=== PATIENT | female | born 1975 | race Caucasian/White ===

== ENCOUNTER → 2016-11-17 | Outpatient (REF) | payer MEDICARE, MEDICAID ==
[2016-11-17 13:38] LABS: ALBUMIN 3.9 GM/DL (3.2-5.2); ALBUMIN/GLOBULIN RATIO 1.22 (1.00-1.93); ALKALINE PHOSPHATASE 58 U/L (45-117); ALT/SGPT 20 U/L (12-78); ANION GAP 7 MEQ/L (8-16); AST/SGOT 19 U/L (15-37); BILIRUBIN,TOTAL 0.4 MG/DL (0.2-1.0); BLOOD UREA NITROGEN 15 MG/DL (7-18); CALCIUM LEVEL 9.9 MG/DL (8.5-10.1); CARBON DIOXIDE LEVEL 29 MEQ/L (21-32); CHLORIDE LEVEL 104 MEQ/L (98-107); CREATININE FOR GFR 0.67 MG/DL (0.55-1.02); GLOMERULAR FILTRATION RATE > 60.0 (>58); GLUCOSE, FASTING 66 MG/DL (70-105); POTASSIUM SERUM 4.5 MEQ/L (3.5-5.1); SODIUM LEVEL 140 MEQ/L (136-145); TOTAL PROTEIN 7.1 GM/DL (6.4-8.2)
== END ==
LOC: M SFHCPLAZ 09:40
PROVIDERS: ATTEND Nurse Practitioner Family
DX: E78.2 Mixed hyperlipidemia (principal); E55.9 Vitamin D deficiency, unspecified

== ENCOUNTER → 2017-05-10 | Outpatient (REF) | payer MEDICARE, MEDICAID ==
[2017-05-10 10:58] LABS: ALBUMIN 3.8 GM/DL (3.2-5.2); ALBUMIN/GLOBULIN RATIO 1.23 (1.00-1.93); ALKALINE PHOSPHATASE 63 U/L (45-117); ALT/SGPT 19 U/L (12-78); ANION GAP 6 MEQ/L (8-16); AST/SGOT 11 U/L (15-37); BILIRUBIN,TOTAL 0.5 MG/DL (0.2-1.0); BLOOD UREA NITROGEN 13 MG/DL (7-18); CALCIUM LEVEL 9.2 MG/DL (8.5-10.1); CARBON DIOXIDE LEVEL 29 MEQ/L (21-32); CHLORIDE LEVEL 104 MEQ/L (98-107); CHOLESTEROL LEVEL 187 MG/DL (<200); GLOMERULAR FILTRATION RATE > 60.0 (>58); GLUCOSE, FASTING 81 MG/DL (70-105); SODIUM LEVEL 139 MEQ/L (136-145); TOTAL PROTEIN 6.9 GM/DL (6.4-8.2); TRIGLYCERIDES LEVEL 144 MG/DL (<150)
== END ==
LOC: M SFHCPLAZ 08:28
PROVIDERS: ATTEND Nurse Practitioner Family
DX: E78.2 Mixed hyperlipidemia (principal); E55.9 Vitamin D deficiency, unspecified

== ENCOUNTER → 2017-11-21 | Outpatient (REF) | payer MEDICARE, MEDICAID ==
[2017-11-22 08:09] LABS: ALPHA 1 ANTITRYPSIN 140 mg/dL (90-200)
== END ==
LOC: M SFHCPLAZ 09:37
DX: Z82.5 Family history of asthma and other chronic lower respiratory diseases (principal)
CPT/HCPCS: 82103

== ENCOUNTER → 2018-03-08 | Outpatient (CLI) | payer MEDICARE, MEDICAID | LOC: M WHC 11:46 | DX: Z01.419 Encounter for gynecological examination (general) (routine) without abnormal findings (principal); Z12.31 Encounter for screening mammogram for malignant neoplasm of breast (principal); Z79.3 Long term (current) use of hormonal contraceptives; R92.8 Other abnormal and inconclusive findings on diagnostic imaging of breast | CPT/HCPCS: 77067 ==

== ENCOUNTER → 2018-06-06 | Outpatient (REF) | payer MEDICARE, MEDICAID ==
[2018-06-06 12:35] LABS: ALBUMIN 3.9 GM/DL (3.2-5.2); ALBUMIN/GLOBULIN RATIO 1.34 (1.00-1.93); ALKALINE PHOSPHATASE 62 U/L (45-117); ALT/SGPT 20 U/L (12-78); ANION GAP 9 MEQ/L (8-16); AST/SGOT 15 U/L (7-37); BILIRUBIN,TOTAL 0.8 MG/DL (0.2-1.0); BLOOD UREA NITROGEN 15 MG/DL (7-18); CALCIUM LEVEL 9.4 MG/DL (8.5-10.1); CARBON DIOXIDE LEVEL 27 MEQ/L (21-32); CHLORIDE LEVEL 105 MEQ/L (98-107); CHOLESTEROL LEVEL 158 MG/DL (<200); CHOLESTEROL RISK RATIO 3.098 (<5); CREATININE FOR GFR 0.68 MG/DL (0.55-1.30); GLOMERULAR FILTRATION RATE > 60.0 (>58); GLUCOSE, FASTING 74 MG/DL (70-100); HDL CHOLESTEROL 51 MG/DL (>40); LDL CHOLESTEROL 82 MG/DL (<100); NON-HDL-C 107 MG/DL; POTASSIUM SERUM 4.2 MEQ/L (3.5-5.1); SODIUM LEVEL 141 MEQ/L (136-145); TOTAL PROTEIN 6.8 GM/DL (6.4-8.2); TRIGLYCERIDES LEVEL 123 MG/DL (<150)
== END ==
LOC: M SFHCPLAZ 08:43
DX: E78.2 Mixed hyperlipidemia (principal); E55.9 Vitamin D deficiency, unspecified
CPT/HCPCS: 80053

== ENCOUNTER → 2019-05-23 | Outpatient (REF) | payer MEDICARE, MEDICAID ==
[2019-05-23 10:37] LABS: ALBUMIN 3.5 GM/DL (3.2-5.2); ALT/SGPT 13 U/L (12-78); BILIRUBIN,TOTAL 0.4 MG/DL (0.2-1.0); BLOOD UREA NITROGEN 15 MG/DL (7-18); CALCIUM LEVEL 9.3 MG/DL (8.5-10.1); CARBON DIOXIDE LEVEL 30 MEQ/L (21-32); CHLORIDE LEVEL 108 MEQ/L (98-107); CHOLESTEROL LEVEL 167 MG/DL (<200); CHOLESTEROL RISK RATIO 2.879 (<5); CREATININE FOR GFR 0.72 MG/DL (0.55-1.30); GLOMERULAR FILTRATION RATE > 60.0 (>58); GLUCOSE, FASTING 88 MG/DL (70-100); HDL CHOLESTEROL 58 MG/DL (>40); LDL CHOLESTEROL 89 MG/DL (<100); NON-HDL-C 109 MG/DL; SODIUM LEVEL 142 MEQ/L (136-145); TOTAL PROTEIN 6.5 GM/DL (6.4-8.2); TRIGLYCERIDES LEVEL 99 MG/DL (<150)
[2019-05-23 11:38] LABS: TOTAL 25(OH) VITAMIN D 47.6 NG/ML (30.0-100.0)
== END ==
LOC: M SFHCPLAZ 08:00
PROVIDERS: ATTEND Nurse Practitioner Family
DX: E78.2 Mixed hyperlipidemia (principal); E55.9 Vitamin D deficiency, unspecified

== ENCOUNTER → 2019-06-13 | Outpatient (REF) | payer MEDICARE, MEDICAID ==
[2019-06-18 14:27] LABS: HPV HYBRID CAPTURE II Negative (Negative)
== END ==
LOC: M SFHCWAGY 14:45
PROVIDERS: ATTEND Nurse Practitioner Women's Health
DX: Z12.4 Encounter for screening for malignant neoplasm of cervix (principal)
CPT/HCPCS: 87624; G0101; G0123

== ENCOUNTER → 2019-06-13 | Outpatient (CLI) | payer MEDICARE, MEDICAID ==
--- NOTE | 2019-06-13 15:30 | REP ---
BILATERAL SCREENING DIGITAL MAMMOGRAM WITH 3D TOMOSYNTHESIS: There are no palpable abnormalities or other breast complaints. The the patient states she had a clinical breast examination June,. The the patient states she performs self-breast examinations two times per year. The Tyrer Cuzick Score is: 18.4% . Comparison is 10/08/2015. The breasts are heterogeneously dense, which could obscure small masses. There is no dominant mass, micro calcific cluster or architectural distortion that would indicate malignancy. There are no additional findings on 3D tomosynthesiss. There is no change from the prior study. Impression: BIRADS/ACR category 1 mammogram. Negative. Recommendation: Routine annual screening mammography. Because of the increased breast density, annual adjunctive breast MRI in addition to screening mammography is recommended. These can be performed at alternating six month intervals. This mammogram was interpreted with the aid of a FDA approved computer-aided detection system. A. Negative mammogram reports should not delay biopsy if a dominant or clinically suspicious mass is present. B. Not all breast cancers are identified by mammography or tomosynthesis. C. Adenosis and dense breasts may obscure an underlying neoplasm. Patient letter M1 dense breasts. Electronically Signed by Tex Singh MD 06/13/2019 03:21 P
== END ==
LOC: M WHC 14:06
PROVIDERS: ATTEND Nurse Practitioner Women's Health
DX: Z01.419 Encounter for gynecological examination (general) (routine) without abnormal findings (principal); Z12.31 Encounter for screening mammogram for malignant neoplasm of breast
CPT/HCPCS: 77063; 77067; 87624; G0101; G0123

== ENCOUNTER → 2020-05-14 | Outpatient (REF) | payer MEDICARE, MEDICAID ==
[2020-05-14 14:22] LABS: ALBUMIN 3.9 GM/DL (3.2-5.2); ALT/SGPT 12 U/L (12-78); BILIRUBIN,TOTAL 0.5 MG/DL (0.2-1.0); BLOOD UREA NITROGEN 8 MG/DL (7-18); CALCIUM LEVEL 10.3 MG/DL (8.5-10.1); CARBON DIOXIDE LEVEL 27 MEQ/L (21-32); CHLORIDE LEVEL 103 MEQ/L (98-107); CHOLESTEROL LEVEL 215 MG/DL (<200); CHOLESTEROL RISK RATIO 3.771 (<5); CREATININE FOR GFR 0.69 MG/DL (0.55-1.30); GLOMERULAR FILTRATION RATE > 60.0 (>58); GLUCOSE, FASTING 82 MG/DL (70-100); HDL CHOLESTEROL 57 MG/DL (>40); LDL CHOLESTEROL 116 MG/DL (<100); NON-HDL-C 158 MG/DL; POTASSIUM SERUM 4.2 MEQ/L (3.5-5.1); SODIUM LEVEL 136 MEQ/L (136-145); TOTAL PROTEIN 7.4 GM/DL (6.4-8.2); TRIGLYCERIDES LEVEL 209 MG/DL (<150)
[2020-05-14 14:29] LABS: TOTAL 25(OH) VITAMIN D 46.3 NG/ML (30.0-100.0)
== END ==
LOC: M SFHCPLAZ 10:46
PROVIDERS: ATTEND Family Medicine
DX: E78.2 Mixed hyperlipidemia (principal); E55.9 Vitamin D deficiency, unspecified; Z23 Encounter for immunization
CPT/HCPCS: 36415; 80053; 80061; 82306; 90682; G0008; G0463

== ENCOUNTER → 2020-06-16 | Outpatient (CLI) | payer MEDICARE, MEDICAID ==
--- NOTE | 2020-06-16 12:16 | REPMRS ---
Patient History The patient states she had a clinical breast exam in June 2020. Family history of breast cancer at age 50 or over in maternal aunt, prostate cancer in maternal grandfather. Taking hormonal contraceptives for 25 years. Digital Woman Screen Mammo: June 16, 2020 - Exam #: [id number] Bilateral CC and MLO view(s) were taken. Technologist: RT Jase Prior study comparison: June 13, 2019, bilateral digital woman screen mammo performed at [facility]. March 08, 2018, bilateral digital woman screen mammo performed at [facility]. October 08, 2015, digital woman screen mammo performed at [facility]. FINDINGS: The breast tissue is heterogeneously dense. This may lower the sensitivity of mammography. The Volpara volumetric breast density category is: C. There is a moderate amount of heterogeneously dense fibroglandular tissue which is fairly symmetric. There is no interval development of dominant mass, architectural distortion, or grouped microcalcification typical of malignancy. There has been no change in the appearance of the mammogram from the prior studies. 3-D tomosynthesis shows no additional findings. Assessment: BI-RADS/ACR category 1 mammogram. Negative Mammogram. Recommendation Routine screening mammogram of both breasts in 1 year (for women over age 40). This patient's Lifetime Breast Cancer RIsk is estimated at 18.1 %. This mammogram was interpreted with the aid of an FDA-approved computer-aided dectection system. Electronically Signed By: Luis Alfredo Diaz MD 06/16/20 [id number]
== END ==
LOC: M WHC 09:58
PROVIDERS: ATTEND Nurse Practitioner Women's Health
DX: Z01.419 Encounter for gynecological examination (general) (routine) without abnormal findings (principal); Z12.31 Encounter for screening mammogram for malignant neoplasm of breast; Z92.0 Personal history of contraception
CPT/HCPCS: 77063; 77067; G0101

== ENCOUNTER → 2021-06-03 | Outpatient (CLI) | payer MEDICARE, MEDICAID ==
[2021-06-03 13:49] LABS: ALBUMIN 3.9 GM/DL (3.2-5.2); ALT/SGPT 23 U/L (12-78); BILIRUBIN,TOTAL 0.6 MG/DL (0.2-1.0); BLOOD UREA NITROGEN 16 MG/DL (7-18); CALCIUM LEVEL 9.7 MG/DL (8.5-10.1); CARBON DIOXIDE LEVEL 31 MEQ/L (21-32); CHLORIDE LEVEL 106 MEQ/L (98-107); CHOLESTEROL LEVEL 203 MG/DL (<200); CREATININE FOR GFR 0.73 MG/DL (0.55-1.30); GLOMERULAR FILTRATION RATE > 60.0 (>58); GLUCOSE, FASTING 97 MG/DL (70-100); HDL CHOLESTEROL 51 MG/DL (>40); LDL CHOLESTEROL 106 MG/DL (<100); NON-HDL-C 152 MG/DL; POTASSIUM SERUM 4.1 MEQ/L (3.5-5.1); SODIUM LEVEL 138 MEQ/L (136-145); TOTAL 25(OH) VITAMIN D 44.8 NG/ML (30.0-100.0); TOTAL PROTEIN 7.2 GM/DL (6.4-8.2); TRIGLYCERIDES LEVEL 232 MG/DL (<150)
== END ==
LOC: M PLALAB 09:30
PROVIDERS: ATTEND Family Medicine
DX: E55.9 Vitamin D deficiency, unspecified (principal); E78.2 Mixed hyperlipidemia; M62.81 Muscle weakness (generalized)

== ENCOUNTER → 2021-07-06 | Outpatient (RCR) | payer MEDICARE, MEDICAID ==
[~2021-07-06] MED LIST: ALLE1TAB23 PO; CALC-190 PO; DRIS50003 PO; LEVO0.1T PO; MULTTAB61 PO; PRAV40TA2 PO
== END ==
LOC: M PT 06-09 09:49
PROVIDERS: ATTEND Family Medicine
DX: M62.81 Muscle weakness (generalized) (principal)

== ENCOUNTER 2021-07-28 10:45 | Outpatient (RCR) | payer MEDICARE, MEDICAID | END 2021-08-06 | LOC: M PT 10:45 | PROVIDERS: ATTEND Family Medicine | DX: M62.81 Muscle weakness (generalized) (principal); M25.572 Pain in left ankle and joints of left foot; M25.561 Pain in right knee ==

== ENCOUNTER → 2021-08-24 | Outpatient (REF) | payer MEDICARE, MEDICAID | LOC: M SFHCWAGY 13:13 | PROVIDERS: ATTEND Nurse Practitioner Women's Health | DX: Z12.4 Encounter for screening for malignant neoplasm of cervix (principal) ==

== ENCOUNTER → 2021-08-24 | Outpatient (CLI) | payer MEDICARE, MEDICAID | LOC: M WHC 10:24 | PROVIDERS: ATTEND Nurse Practitioner Women's Health | DX: Z12.31 Encounter for screening mammogram for malignant neoplasm of breast (principal); R92.1 Mammographic calcification found on diagnostic imaging of breast ==

== ENCOUNTER 2021-08-26 10:00 | Outpatient (RCR) | payer MEDICARE, MEDICAID | END 2021-09-06 | LOC: M PT 10:00 | PROVIDERS: ATTEND Family Medicine | DX: M62.81 Muscle weakness (generalized) (principal); M25.572 Pain in left ankle and joints of left foot; M25.561 Pain in right knee ==

== ENCOUNTER → 2021-09-01 | Outpatient (CLI) | payer MEDICARE, MEDICAID | LOC: M WHC 10:25 | PROVIDERS: ATTEND Nurse Practitioner Women's Health | DX: R92.8 Other abnormal and inconclusive findings on diagnostic imaging of breast (principal) | CPT/HCPCS: 77065; G0279 ==

== ENCOUNTER → 2021-09-29 | Outpatient (CLI) | payer MEDICARE, MEDICAID ==
[2021-09-29 10:34] VITALS: BP 142/86
== END ==
LOC: M WHCPRO 08:39
PROVIDERS: ATTEND Surgery
DX: D24.1 Benign neoplasm of right breast (principal); N60.11 Diffuse cystic mastopathy of right breast

== ENCOUNTER → 2022-01-21 | Outpatient (CLI) | payer MEDICARE, MEDICAID ==
[2022-01-21 13:29] LABS: BASO # 0.1 10^3/uL (0.0-0.2); BASO % 0.7 % (0.0-1.0); EOS # 0.1 10^3/uL (0.0-0.5); EOS % 1.2 % (0.0-3.0); HEMATOCRIT 44.9 % (36.0-47.0); HEMOGLOBIN 14.5 g/dl (12.0-15.5); LYMPH # 1.5 10^3/uL (1.5-5.0); LYMPH % 21.5 % (24.0-44.0); MEAN CORPUSCULAR HEMOGLOBIN 29.8 pg (27.0-33.0); MEAN CORPUSCULAR HGB CONC 32.3 g/dl (32.0-36.5); MEAN CORPUSCULAR VOLUME 92.4 fl (80.0-96.0); MONO # 0.3 10^3/uL (0.0-0.8); MONO % 4.8 % (2.0-8.0); NEUTROPHILS # 4.9 10^3/uL (1.5-8.5); NEUTROPHILS % 71.4 % (36.0-66.0); PLATELET COUNT, AUTOMATED 279 10^3/uL (150-450); RED BLOOD COUNT 4.86 10^6/uL (4.00-5.40); WHITE BLOOD COUNT 6.9 10^3/uL (4.0-10.0)
[2022-01-21 14:10] LABS: ALBUMIN 3.9 GM/DL (3.2-5.2); ALT/SGPT 15 U/L (12-78); BILIRUBIN,TOTAL 0.4 MG/DL (0.2-1.0); BLOOD UREA NITROGEN 9 MG/DL (7-18); CALCIUM LEVEL 9.5 MG/DL (8.5-10.1); CARBON DIOXIDE LEVEL 27 MEQ/L (21-32); CHLORIDE LEVEL 106 MEQ/L (98-107); CHOLESTEROL LEVEL 198 MG/DL (<200); CHOLESTEROL RISK RATIO 3.666 (<5); CREATININE FOR GFR 0.64 MG/DL (0.55-1.30); FOLLICLE STIMULATING HORMONE 1.2 mIU/mL; GLOMERULAR FILTRATION RATE > 60.0 (>58); GLUCOSE, FASTING 76 MG/DL (70-100); HDL CHOLESTEROL 54 MG/DL (>40); LDL CHOLESTEROL 107 MG/DL (<100); LUTEINIZING HORMONE 0.6 mIU/mL; NON-HDL-C 144 MG/DL; POTASSIUM SERUM 4.1 MEQ/L (3.5-5.1); SODIUM LEVEL 139 MEQ/L (136-145); TOTAL 25(OH) VITAMIN D 42.8 NG/ML (30.0-100.0); TOTAL PROTEIN 7.5 GM/DL (6.4-8.2); TRIGLYCERIDES LEVEL 184 MG/DL (<150)
== END ==
LOC: M PLALAB 09:22
PROVIDERS: ATTEND Physician Assistant
DX: Z00.00 Encounter for general adult medical examination without abnormal findings (principal); E78.2 Mixed hyperlipidemia; E55.9 Vitamin D deficiency, unspecified; N94.6 Dysmenorrhea, unspecified; Z79.899 Other long term (current) drug therapy

== ENCOUNTER 2022-02-04 08:58 | Outpatient (RCR) | payer MEDICARE, MEDICAID | END 2022-03-06 | LOC: M PT 08:58 | PROVIDERS: ATTEND Physician Assistant | DX: M62.81 Muscle weakness (generalized) (principal) ==

== ENCOUNTER → 2022-02-04 | Outpatient (CLI) | payer MEDICARE, MEDICAID | LOC: M RAD 13:25 | PROVIDERS: ATTEND Physician Assistant | DX: N94.6 Dysmenorrhea, unspecified (principal) ==

== ENCOUNTER → 2022-03-07 | Outpatient (CLI) | payer MEDICARE, MEDICAID | LOC: M WHC 08:54 | PROVIDERS: ATTEND Nurse Practitioner Women's Health | DX: R92.8 Other abnormal and inconclusive findings on diagnostic imaging of breast (principal) | CPT/HCPCS: 77065; G0279 ==

== ENCOUNTER → 2022-08-26 | Outpatient (CLI) | payer MEDICARE, MEDICAID | LOC: M WHC 12:59 | PROVIDERS: ATTEND Advanced Practice Midwife | DX: Z12.31 Encounter for screening mammogram for malignant neoplasm of breast (principal) ==

== ENCOUNTER → 2022-09-13 | Outpatient (CLI) | payer MEDICARE, MEDICAID | LOC: M WHC 08:24 | PROVIDERS: ATTEND Advanced Practice Midwife | DX: Z12.31 Encounter for screening mammogram for malignant neoplasm of breast (principal) | CPT/HCPCS: 77065; G0279 ==

== ENCOUNTER → 2022-10-04 | Outpatient (RCR) | payer MEDICARE, MEDICAID | LOC: M PT 09:30 | PROVIDERS: ATTEND Physician Assistant | DX: M62.81 Muscle weakness (generalized) (principal) ==

== ENCOUNTER → 2022-10-14 | Outpatient (REF) | payer MEDICARE, MEDICAID | LOC: M SFHCWAGY 15:03 | PROVIDERS: ATTEND Advanced Practice Midwife | DX: N90.89 Other specified noninflammatory disorders of vulva and perineum (principal); L81.9 Disorder of pigmentation, unspecified ==

== ENCOUNTER → 2022-11-04 | Outpatient (RCR) | payer MEDICARE, MEDICAID | LOC: M PT 10-14 11:19 | PROVIDERS: ATTEND Physician Assistant | DX: M62.81 Muscle weakness (generalized) (principal) ==

== ENCOUNTER 2022-12-02 11:10 | Outpatient (RCR) | payer MEDICARE, MEDICAID | END 2022-12-04 | LOC: M PT 11:10 | PROVIDERS: ATTEND Physician Assistant | DX: M62.81 Muscle weakness (generalized) (principal) ==

== ENCOUNTER → 2023-01-20 | Outpatient (CLI) | payer MEDICARE, MEDICAID ==
[2023-01-20 13:36] LABS: BASO % 0.4 % (0.0-1.0); EOS % 0.6 % (0.0-3.0); HEMATOCRIT 41.4 % (36.0-47.0); HEMOGLOBIN 13.6 g/dl (12.0-15.5); LYMPH # 1.6 10^3/uL (1.5-5.0); LYMPH % 22.2 % (24.0-44.0); MEAN CORPUSCULAR HEMOGLOBIN 30.4 pg (27.0-33.0); MEAN CORPUSCULAR HGB CONC 32.9 g/dl (32.0-36.5); MEAN CORPUSCULAR VOLUME 92.6 fl (80.0-96.0); MONO # 0.4 10^3/uL (0.0-0.8); MONO % 6.1 % (2.0-8.0); NEUTROPHILS # 5.1 10^3/uL (1.5-8.5); NEUTROPHILS % 70.4 % (36.0-66.0); PLATELET COUNT, AUTOMATED 278 10^3/uL (150-450); RED BLOOD COUNT 4.47 10^6/uL (4.00-5.40); WHITE BLOOD COUNT 7.2 10^3/uL (4.0-10.0)
[2023-01-20 13:54] LABS: HEMOGLOBIN A1c 5.2 % (4.0-6.0)
[2023-01-20 14:04] LABS: ALBUMIN 4.4 G/DL (3.2-5.2); ALKALINE PHOSPHATASE 74 U/L (46-116); ALT/SGPT 18 U/L (7.0-40); AST/SGOT 10 U/L (<34); BILIRUBIN,TOTAL 0.4 MG/DL (0.3-1.2); BLOOD UREA NITROGEN 14 MG/DL (9-23); CALCIUM LEVEL 9.5 MG/DL (8.5-10.1); CARBON DIOXIDE LEVEL 26 MMOL/L (20-31); CHLORIDE LEVEL 106 MMOL/L (98-107); CHOLESTEROL LEVEL 151 MG/DL (<200); CHOLESTEROL RISK RATIO 3.24 (<5); CREATININE FOR GFR 0.66 MG/DL (0.55-1.30); GLOMERULAR FILTRATION RATE > 60.0 (>58); GLUCOSE, FASTING 94 MG/DL (60-100); HDL CHOLESTEROL 46.5 MG/DL (>40); LDL CHOLESTEROL 75.1 MG/DL (<100); NON-HDL-C 104.5 MG/DL; POTASSIUM SERUM 4.2 MMOL/L (3.5-5.1); SODIUM LEVEL 139 MMOL/L (136-145); TOTAL PROTEIN 6.9 G/DL (5.7-8.2); TRIGLYCERIDES LEVEL 147 MG/DL (<150)
[2023-01-20 14:05] LABS: THYROID STIMULATING HORMONE 2.284 uIU/ML (0.55-4.78)
== END ==
LOC: M PLALAB 11:03
PROVIDERS: ATTEND Physician Assistant
DX: E78.2 Mixed hyperlipidemia (principal); I10 Essential (primary) hypertension; Z79.899 Other long term (current) drug therapy

== ENCOUNTER → 2023-08-30 | Outpatient (CLI) | payer MEDICARE, MEDICAID ==
[~2023-08-30] MED LIST changes: -ALLE1TAB23 PO; +FEXO-157 PO
== END ==
LOC: M WHC 11:44
PROVIDERS: ATTEND Advanced Practice Midwife
DX: Z12.31 Encounter for screening mammogram for malignant neoplasm of breast (principal)

== ENCOUNTER 2023-10-26 14:25 | Emergency (ER) | payer MEDICARE, MEDICAID ==
[~2023-10-26] VITALS: Ht 165.1 cm; Wt 82.6 kg
[2023-10-26] MEDS ORDERED: LISI20TA33 PO (14:34)
[2023-10-26] MEDS: ONDANSETRON 4MG 2ML VIAL IV ONE (14:50)
[2023-10-26] MEDS: MORPHINE 2 MG/ML 1ML VIAL IV ONE ×2 (14:56→18:45)
[2023-10-26 15:17] LABS: BASO % 0.2 % (0.0-1.0); EOS % 0.1 % (0.0-3.0); HEMATOCRIT 39.6 % (36.0-47.0); HEMOGLOBIN 13.1 g/dl (12.0-15.5); LYMPH # 1.1 10^3/uL (1.5-5.0); LYMPH % 7.7 % (24.0-44.0); MEAN CORPUSCULAR HEMOGLOBIN 30.3 pg (27.0-33.0); MEAN CORPUSCULAR HGB CONC 33.1 g/dl (32.0-36.5); MEAN CORPUSCULAR VOLUME 91.5 fl (80.0-96.0); MONO # 0.8 10^3/uL (0.0-0.8); MONO % 5.2 % (2.0-8.0); NEUTROPHILS # 12.4 10^3/uL (1.5-8.5); NEUTROPHILS % 86.5 % (36.0-66.0); PLATELET COUNT, AUTOMATED 342 10^3/uL (150-450); RED BLOOD COUNT 4.33 10^6/uL (4.00-5.40); WHITE BLOOD COUNT 14.4 10^3/uL (4.0-10.0)
[2023-10-26 15:36] LABS: LIPASE 31 U/L (12-53)
[2023-10-26 15:38] LABS: ALBUMIN 3.8 G/DL (3.2-5.2); ALKALINE PHOSPHATASE 87 U/L (46-116); ALT/SGPT 26 U/L (7.0-40); AST/SGOT < 8 U/L (<34); BILIRUBIN,DIRECT 0.2 MG/DL (<0.4); BILIRUBIN,TOTAL 0.5 MG/DL (0.3-1.2); BLOOD UREA NITROGEN 10 MG/DL (9-23); CALCIUM LEVEL 10.6 MG/DL (8.5-10.1); CARBON DIOXIDE LEVEL 27 MMOL/L (20-31); CHLORIDE LEVEL 103 MMOL/L (98-107); CREATININE FOR GFR 0.57 MG/DL (0.55-1.30); GLOMERULAR FILTRATION RATE > 60.0 (>58); GLUCOSE, FASTING 111 MG/DL (60-100); POTASSIUM SERUM 3.9 MMOL/L (3.5-5.1); SODIUM LEVEL 137 MMOL/L (136-145); TOTAL PROTEIN 7.1 G/DL (5.7-8.2)
[2023-10-26 15:41] LABS: HCG, SERUM QUALITATIVE NEGATIVE (NEGATIVE)
[2023-10-26] MEDS ORDERED: ISOVUE-370 76% 100ML VIAL As Ordered ONE (15:49)
[2023-10-26] MEDS: PIPERACILLIN/TAZOBACTAM SOD 3.375 GM in D5W MINI-BAG PLUS 50 ML IV ONE (18:00)
[2023-10-26] MEDS: NS 1,000 ML IV SCH (21:10)
[2023-10-27 00:27] VITALS: BP 149/67; TEMP 98.1; O2SAT 98
== END 2023-10-27 00:32 | disposition short-term general hospital (02) ==
LOC: M ED 14:25
DX: T18.2XXA Foreign body in stomach, initial encounter (principal); I10 Essential (primary) hypertension; E78.5 Hyperlipidemia, unspecified
CPT/HCPCS: 74177; 80048; 80076; 83690; 84703; 85025; 86140; 96361; 96365; 96366; 96374; 96375; 96376; 99284; J2405; J2543; Q9967

== ENCOUNTER → 2023-11-03 | Outpatient (CLI) | payer MEDICARE, MEDICAID ==
[~2023-11-03] MED LIST changes: +BISA10SU PR; +COLA100C5 PO; +LISI20TA33 PO; +MIRA33506 PO; +SENN-52 PO
[2023-11-03 17:31] LABS: RED BLOOD COUNT 4.15 10^6/uL (4.00-5.40)
[2023-11-03 17:32] LABS: BASO % 0.4 % (0.0-1.0); EOS % 0.7 % (0.0-3.0); HEMATOCRIT 38.2 % (36.0-47.0); HEMOGLOBIN 12.3 g/dl (12.0-15.5); LYMPH # 1.4 10^3/uL (1.5-5.0); LYMPH % 19.2 % (24.0-44.0); MEAN CORPUSCULAR HEMOGLOBIN 29.6 pg (27.0-33.0); MEAN CORPUSCULAR HGB CONC 32.2 g/dl (32.0-36.5); MONO % 8.7 % (2.0-8.0); NEUTROPHILS # 4.9 10^3/uL (1.5-8.5); NEUTROPHILS % 69.7 % (36.0-66.0); PLATELET COUNT, AUTOMATED 417 10^3/uL (150-450)
[2023-11-03 17:33] LABS: EOS # 0.1 10^3/uL (0.0-0.5); MONO # 0.6 10^3/uL (0.0-0.8)
[2023-11-03 17:58] LABS: LIPASE 39 U/L (12-53)
[2023-11-03 18:00] LABS: ALBUMIN 3.2 G/DL (3.2-5.2); ALKALINE PHOSPHATASE 87 U/L (46-116); ALT/SGPT 33 U/L (7.0-40); AST/SGOT 18 U/L (<34); BILIRUBIN,TOTAL 0.2 MG/DL (0.3-1.2); BLOOD UREA NITROGEN 7 MG/DL (9-23); CALCIUM LEVEL 9.3 MG/DL (8.5-10.1); CARBON DIOXIDE LEVEL 26 MMOL/L (20-31); CHLORIDE LEVEL 104 MMOL/L (98-107); CREATININE FOR GFR 0.58 MG/DL (0.55-1.30); GLOMERULAR FILTRATION RATE > 60.0 (>58); GLUCOSE, FASTING 89 MG/DL (60-100); POTASSIUM SERUM 3.6 MMOL/L (3.5-5.1); SODIUM LEVEL 139 MMOL/L (136-145); TOTAL PROTEIN 6.4 G/DL (5.7-8.2)
== END ==
LOC: M PLAIMG 15:44
PROVIDERS: ATTEND Physician Assistant
DX: R10.13 Epigastric pain (principal); D72.829 Elevated white blood cell count, unspecified; T18.9XXA Foreign body of alimentary tract, part unspecified, initial encounter; W44.F1XA Bezoar entering into or through a natural orifice, initial encounter; Y92.9 Unspecified place or not applicable; Y99.9 Unspecified external cause status

== ENCOUNTER 2023-11-04 16:41 | Observation (INO) | payer MEDICARE, MEDICAID ==
[~2023-11-04] VITALS: Ht 162.6 cm; Wt 80.0 kg
[~2023-11-04 16:41] MED LIST changes: -BISA10SU PR; -COLA100C5 PO; -MIRA33506 PO; -SENN-52 PO
[2023-11-04] MEDS: ACETAMINOPHEN *IV* 1,000 MG in IV 1 EA IV ONE (18:27)
[2023-11-04] MEDS: NS 1,000 ML IV ONE (18:27)
[2023-11-04] MEDS: ONDANSETRON 4MG 2ML VIAL IV ONE (18:28)
[2023-11-04 18:34] LABS: HEMOGLOBIN 12.8 g/dl (12.0-15.5); RED BLOOD COUNT 4.29 10^6/uL (4.00-5.40); WHITE BLOOD COUNT 15.4 10^3/uL (4.0-10.0)
[2023-11-04 18:35] LABS: BASO % 0.2 % (0.0-1.0); EOS % 0.1 % (0.0-3.0); HEMATOCRIT 39.1 % (36.0-47.0); LYMPH # 1.1 10^3/uL (1.5-5.0); LYMPH % 6.8 % (24.0-44.0); MEAN CORPUSCULAR HEMOGLOBIN 29.8 pg (27.0-33.0); MEAN CORPUSCULAR HGB CONC 32.7 g/dl (32.0-36.5); MEAN CORPUSCULAR VOLUME 91.1 fl (80.0-96.0); MONO # 0.7 10^3/uL (0.0-0.8); MONO % 4.8 % (2.0-8.0); NEUTROPHILS # 13.5 10^3/uL (1.5-8.5); NEUTROPHILS % 87.4 % (36.0-66.0); PLATELET COUNT, AUTOMATED 437 10^3/uL (150-450)
[2023-11-04 19:59] LABS: LIPASE 26 U/L (12-53)
[2023-11-04 20:05] LABS: ALBUMIN 2.4 G/DL (3.2-5.2); ALKALINE PHOSPHATASE 60 U/L (46-116); ALT/SGPT 19 U/L (7.0-40); AST/SGOT 12 U/L (<34); BILIRUBIN,DIRECT < 0.1 MG/DL (<0.4); BILIRUBIN,TOTAL 0.2 MG/DL (0.3-1.2); BLOOD UREA NITROGEN < 5 MG/DL (9-23); CARBON DIOXIDE LEVEL 19 MMOL/L (20-31); CHLORIDE LEVEL 111 MMOL/L (98-107); GLOMERULAR FILTRATION RATE > 60.0 (>58); GLUCOSE, FASTING 76 MG/DL (60-100); POTASSIUM SERUM 3.5 MMOL/L (3.5-5.1); SODIUM LEVEL 143 MMOL/L (136-145); TOTAL PROTEIN 4.6 G/DL (5.7-8.2)
[2023-11-04] MEDS ORDERED: ISOVUE-370 76% 100ML VIAL As Ordered ONE (20:08)
[2023-11-05 00:44] LABS: WHITE BLOOD COUNT 19.1 10^3/uL (4.0-10.0)
[2023-11-05 00:45] LABS: BASO % 0.3 % (0.0-1.0); EOS % 0.1 % (0.0-3.0); HEMATOCRIT 36.6 % (36.0-47.0); LYMPH # 1.2 10^3/uL (1.5-5.0); LYMPH % 6.5 % (24.0-44.0); MEAN CORPUSCULAR HEMOGLOBIN 29.8 pg (27.0-33.0); MEAN CORPUSCULAR HGB CONC 32.8 g/dl (32.0-36.5); MEAN CORPUSCULAR VOLUME 90.8 fl (80.0-96.0); MONO # 1.2 10^3/uL (0.0-0.8); MONO % 6.5 % (2.0-8.0); NEUTROPHILS # 16.4 10^3/uL (1.5-8.5); NEUTROPHILS % 86.1 % (36.0-66.0); RED BLOOD COUNT 4.03 10^6/uL (4.00-5.40)
[2023-11-05 00:46] LABS: BASO # 0.1 10^3/uL (0.0-0.2)
[2023-11-05] MEDS ORDERED: HOME MED LIST COMPLETE! XX SCH (01:40)
[2023-11-05] MEDS ORDERED: ACETAMINOPHEN TAB 650MG DOSE (2X325MG) PO PRN (02:55)
[2023-11-05] MEDS ORDERED: BISACODYL 10MG SUPP PR PRN (02:55)
[2023-11-05 04:45] VITALS: BP 136/76; TEMP 97.7; O2SAT 95
[2023-11-05] MEDS: KETOROLAC 30 MG/ML 1ML VIAL IV PRN (05:11)
[2023-11-05] MEDS: HEPARIN SOD (PORCINE) 5000UNITS/ML 1ML VIAL/SYRINGE SC SCH (06:00)
[2023-11-05 06:49] LABS: HEMATOCRIT 35.6 % (36.0-47.0); HEMOGLOBIN 11.3 g/dl (12.0-15.5); MEAN CORPUSCULAR HGB CONC 31.7 g/dl (32.0-36.5); MEAN CORPUSCULAR VOLUME 91.5 fl (80.0-96.0); PLATELET COUNT, AUTOMATED 373 10^3/uL (150-450); RED BLOOD COUNT 3.89 10^6/uL (4.00-5.40); WHITE BLOOD COUNT 19.1 10^3/uL (4.0-10.0)
[2023-11-05] MEDS ORDERED: SENOKOT S TAB PO SCH (09:00)
[2023-11-05] MEDS: SENOKOT S TAB PO SCH (09:25)
[2023-11-05] MEDS: MAG SULF 1GM/100ML (MAG RUN) 1 GM in IV 1 EA IV SCH (09:25)
[2023-11-05] MEDS: PRAVASTATIN 20 MG TAB PO SCH (09:25)
[2023-11-05] MEDS: MIRALAX *UNIT DOSE* 17GM PACKET PO SCH ×2 (09:37→20:25)
[2023-11-05] MEDS: DOCUSATE SODIUM 100MG CAPSULE PO SCH (09:37)
[2023-11-05 14:00] VITALS: BP 124/68; TEMP 98.1; O2SAT 94
[2023-11-05 20:23] VITALS: BP 112/58; TEMP 97.6; O2SAT 96
[2023-11-05] MEDS: MAGNESIUM CITRATE 300ML BTL PO ONE (20:26)
[2023-11-06 05:48] VITALS: BP 121/64; TEMP 98.4; O2SAT 95
[2023-11-06 06:26] LABS: HEMATOCRIT 36.5 % (36.0-47.0); HEMOGLOBIN 11.8 g/dl (12.0-15.5); MEAN CORPUSCULAR HEMOGLOBIN 29.4 pg (27.0-33.0); MEAN CORPUSCULAR HGB CONC 32.3 g/dl (32.0-36.5); PLATELET COUNT, AUTOMATED 398 10^3/uL (150-450); RED BLOOD COUNT 4.01 10^6/uL (4.00-5.40); WHITE BLOOD COUNT 12.7 10^3/uL (4.0-10.0)
[2023-11-06 06:31] LABS: ALBUMIN 3.1 G/DL (3.2-5.2); ALKALINE PHOSPHATASE 80 U/L (46-116); ALT/SGPT 33 U/L (7.0-40); AST/SGOT 27 U/L (<34); BILIRUBIN,TOTAL 0.3 MG/DL (0.3-1.2); BLOOD UREA NITROGEN < 5 MG/DL (9-23); CALCIUM LEVEL 9.4 MG/DL (8.5-10.1); CARBON DIOXIDE LEVEL 24 MMOL/L (20-31); CHLORIDE LEVEL 108 MMOL/L (98-107); CREATININE FOR GFR 0.67 MG/DL (0.55-1.30); GLOMERULAR FILTRATION RATE > 60.0 (>58); GLUCOSE, FASTING 96 MG/DL (60-100); MAGNESIUM LEVEL 2.5 MG/DL (1.8-2.4); POTASSIUM SERUM 3.8 MMOL/L (3.5-5.1); SODIUM LEVEL 139 MMOL/L (136-145)
[2023-11-06 14:00] VITALS: BP 127/79; TEMP 97.9; O2SAT 99
[2023-11-06 21:00] VITALS: BP 121/80; TEMP 98.8; O2SAT 100
[2023-11-07] MEDS: KETOROLAC 30 MG/ML 1ML VIAL IV PRN (05:10)
[2023-11-07 05:20] VITALS: BP 151/96; TEMP 97.2; O2SAT 98
[2023-11-07 06:36] LABS: HEMATOCRIT 36.5 % (36.0-47.0); HEMOGLOBIN 11.8 g/dl (12.0-15.5); MEAN CORPUSCULAR HEMOGLOBIN 29.4 pg (27.0-33.0); MEAN CORPUSCULAR HGB CONC 32.3 g/dl (32.0-36.5); MEAN CORPUSCULAR VOLUME 90.8 fl (80.0-96.0); PLATELET COUNT, AUTOMATED 427 10^3/uL (150-450); RED BLOOD COUNT 4.02 10^6/uL (4.00-5.40)
[2023-11-07 06:48] LABS: BLOOD UREA NITROGEN < 5 MG/DL (9-23); CALCIUM LEVEL 9.1 MG/DL (8.5-10.1); CARBON DIOXIDE LEVEL 24 MMOL/L (20-31); CHLORIDE LEVEL 106 MMOL/L (98-107); CREATININE FOR GFR 0.56 MG/DL (0.55-1.30); GLOMERULAR FILTRATION RATE > 60.0 (>58); GLUCOSE, FASTING 103 MG/DL (60-100); POTASSIUM SERUM 3.7 MMOL/L (3.5-5.1); SODIUM LEVEL 140 MMOL/L (136-145)
[2023-11-07 06:54] LABS: ATYPICAL LYMPH 6 % (0-5); BASOPHILS 1 % (0-1); EOSINOPHILS 1 % (0-3); LYMPHOCYTES 23 % (16-44); MONOCYTES 6 % (0-5); NEUTROPHILS 63 % (28-66); PLATELET ESTIMATE NORMAL (NORMAL)
[2023-11-07 06:55] LABS: POLYCHROMASIA 1+
[2023-11-07] MEDS ORDERED: COLA100C5 PO (07:50)
[2023-11-07] MEDS ORDERED: SENN-52 PO (07:50)
[2023-11-07] MEDS ORDERED: MIRA33506 PO (07:50)
[2023-11-07] MEDS ORDERED: BISA10SU PR (07:50)
[2023-11-07 08:51] VITALS: BP 113/79
== END 2023-11-07 11:27 | disposition home or self-care (01) ==
LOC: M ED 16:41 → M ED INP 16:42 → M MSPAV 11-05 04:45
PROVIDERS: ADMIT Internal Medicine; ATTEND Internal Medicine
DX: K52.89 Other specified noninfective gastroenteritis and colitis (principal); K59.00 Constipation, unspecified; D72.829 Elevated white blood cell count, unspecified; E83.42 Hypomagnesemia; F70 Mild intellectual disabilities; R10.10 Upper abdominal pain, unspecified; R11.2 Nausea with vomiting, unspecified; Q82.4 Ectodermal dysplasia (anhidrotic); I10 Essential (primary) hypertension; E78.5 Hyperlipidemia, unspecified; N80.9 Endometriosis, unspecified; Z82.49 Family history of ischemic heart disease and other diseases of the circulatory system; Z83.49 Family history of other endocrine, nutritional and metabolic diseases; Z83.6 Family history of other diseases of the respiratory system; Z83.2 Family history of diseases of the blood and blood-forming organs and certain disorders involving the immune mechanism; Z79.899 Other long term (current) drug therapy
CPT/HCPCS: 36415; 74018; 74019; 74177; 80048; 80053; 80076; 81001; 83690; 83735; 85025; 85027; 96365; 96366; 96367; 96372; 96375; 96376; 99284; G0378; J0131; J1885; J2405; J3475; Q9967

== ENCOUNTER → 2024-11-14 | Outpatient (CLI) | payer MEDICARE, MEDICAID ==
[~2024-11-14] MED LIST changes: +BISA10SU PR; +COLA100C5 PO; -FEXO-157 PO; +FEXO-63 PO; +MIRA33506 PO; +SENN-52 PO
[2024-11-14 15:16] LABS: BASO % 0.4 % (0.0-1.0); EOS # 0.1 10^3/uL (0.0-0.5); EOS % 1.5 % (0.0-3.0); HEMATOCRIT 44.7 % (36.0-47.0); HEMOGLOBIN 14.4 g/dl (12.0-15.5); LYMPH # 1.5 10^3/uL (1.5-5.0); LYMPH % 21.6 % (24.0-44.0); MEAN CORPUSCULAR HEMOGLOBIN 30.4 pg (27.0-33.0); MEAN CORPUSCULAR HGB CONC 32.2 g/dl (32.0-36.5); MEAN CORPUSCULAR VOLUME 94.3 fl (80.0-96.0); MONO # 0.5 10^3/uL (0.0-0.8); MONO % 7.6 % (2.0-8.0); NEUTROPHILS # 4.6 10^3/uL (1.5-8.5); PLATELET COUNT, AUTOMATED 266 10^3/uL (150-450); RED BLOOD COUNT 4.74 10^6/uL (4.00-5.40); WHITE BLOOD COUNT 6.7 10^3/uL (4.0-10.0)
[2024-11-14 15:22] LABS: ERYTHROCYTE SEDIMENTATION RATE 11 mm/hr (0-20)
[2024-11-14 15:42] LABS: C REACTIVE PROTEIN QUANTITATIV < 0.50 MG/DL (<1.0); RHEUMATOID FACTOR QUANT < 3.5 IU/ML (<14)
[2024-11-14 15:43] LABS: ALBUMIN 4.3 G/DL (3.2-5.2); ALKALINE PHOSPHATASE 76 U/L (35-104); ALT/SGPT 26 U/L (7.0-40); AST/SGOT 15 U/L (<34); BILIRUBIN,TOTAL 0.5 MG/DL (0.3-1.2); BLOOD UREA NITROGEN 15 MG/DL (9-23); CALCIUM LEVEL 9.6 MG/DL (8.5-10.1); CARBON DIOXIDE LEVEL 27 MMOL/L (20-31); CHLORIDE LEVEL 105 MMOL/L (98-107); CHOLESTEROL LEVEL 163 MG/DL (<200); CREATININE FOR GFR 0.59 MG/DL (0.55-1.30); GLOMERULAR FILTRATION RATE > 90.0 (>58); GLUCOSE, FASTING 88 MG/DL (60-100); HDL CHOLESTEROL 46.5 MG/DL (>40); LDL CHOLESTEROL 88.3 MG/DL (<100); NON-HDL-C 116.5 MG/DL; POTASSIUM SERUM 4.2 MMOL/L (3.5-5.1); SODIUM LEVEL 142 MMOL/L (136-145); TOTAL PROTEIN 6.9 G/DL (5.7-8.2); TRIGLYCERIDES LEVEL 141 MG/DL (<150)
[2024-11-14 15:46] LABS: FREE T4 1.15 NG/DL (0.89-1.76)
[2024-11-14 15:48] LABS: THYROID STIMULATING HORMONE 2.112 uIU/ML (0.55-4.78)
[2024-11-14 16:06] LABS: HEMOGLOBIN A1c 4.9 % (4.0-6.0)
[2024-11-18 13:33] LABS: ANA PATTERN Nuclear, Homogeneous (NEGATIVE); ANA SCREEN, IFA POSITIVE (NEGATIVE); ANA TITER 1:40 titer (<1:40)
== END ==
LOC: M PLALAB 09:11
PROVIDERS: ATTEND Nurse Practitioner Family
DX: Z13.1 Encounter for screening for diabetes mellitus (principal); E07.9 Disorder of thyroid, unspecified; E78.00 Pure hypercholesterolemia, unspecified

== ENCOUNTER → 2025-03-06 | Outpatient (CLI) | payer MEDICARE, MEDICAID ==
[~2025-03-06] MED LIST changes: -PRAV40TA2 PO; +PRAV40TA85 PO
== END ==
LOC: M WHC 12:41
PROVIDERS: ATTEND Advanced Practice Midwife
DX: Z12.31 Encounter for screening mammogram for malignant neoplasm of breast (principal); R92.333 Mammographic heterogeneous density, bilateral breasts